=== PATIENT | female | born 2000 | race Caucasian/White ===

== ENCOUNTER 2021-06-23 21:17 | Emergency (ER) | payer MEDICAID, SELFPAY ==
[2021-06-23 21:18] VITALS: BP 142/95; PULSE 99; RESP 16; TEMP 37.3; O2SAT 100; BMI 45.6
[2021-06-23 21:48] LABS: Microscopic, Urine URINE MICROSCOPIC (MICROSCOPIC)
[2021-06-23 21:51] LABS: Appearance,Urine CLEAR (Clear); Bilirubin,Urine Negative (Negative); Blood, Urine 3+ (Negative); Color,Urine YELLOW (Yellow); Glucose,Urine (UA) Negative (Negative); Ketones,Urine Negative (Negative); Leukocyte Esterase,Urine Negative (Negative); Nitrate,Urine Negative (Negative); Protein,Urine 1+ (Negative); Specific Gravity, Urine >= 1.030 (1.005-1.030); Urobilinogen,Urine 0.2 EU/dl (0.2)
[2021-06-23 21:53] LABS: Basophils # 0.3 K/mm3 (0-0.2); Basophils % 2.5 % (0.1-2.0); Eosinophils # 0.2 K/mm3 (0.0-0.4); Eosinophils % 1.6 % (0.1-12.0); Hematocrit 36.4 % (37.0-47.0); Hemoglobin 12.2 g/dL (12.2-16.2); Lymphocytes # 2.3 K/mm3 (0.7-4.5); Lymphocytes % 22.5 % (10-50); Mean Corpuscular HGB Conc 33.5 g/dL (31.8-35.4); Mean Corpuscular Hemoglobin 26.6 pg (27.0-31.2); Mean Corpuscular Volume 79.3 fl (81-99); Mean Platelet Volume 7.5 fl (7.4-10.4); Monocytes # 0.6 K/mm3 (0.1-1.0); Monocytes % 5.8 % (1.7-9.3); Neutrophils % 67.6 % (37.0-80.0); Platelet Count 317 K/mm3 (142-424); Red Blood Count 4.59 M/mm3 (4.20-5.40); Red Cell Distribution Width 14.1 % (11.5-17.5); White Blood Count 10.4 K/mm3 (4.8-10.8)
[2021-06-23 21:54] LABS: Bacteria,Urine Trace /lpf; RBC,Urine TNTC #/hpf (0-3); Squamous Epithelial Cell,Urine Occasional #/hpf (0-5); Urine Pregnancy, HCG Qual. Negative (Negative); WBC,Urine Occasional #/hpf (0-3)
[2021-06-23 22:03] LABS: Alanine Aminotransferase 33 U/L (12-78); Albumin Level 4.1 g/dl (3.5-5.0); Albumin/Globulin Ratio 1.3 (1.1-1.8); Alkaline Phosphatase 101 U/L (38-126); Anion Gap 12.8 mEq/L (5-15); Aspartate Amino Transferase 24 U/L (14-36); Bilirubin,Total 0.3 mg/dl (0.2-1.3); Blood Urea Nitrogen 15 mg/dl (7-17); Calcium 9.5 mg/dl (8.4-10.2); Carbon Dioxide 28 mmol/L (22.0-30.0); Chloride 103 mmol/L (98-107); Creatinine Clearance Estimated 127 mL/min (50-200); Estimated Glomerular Filt Rate 105 ml/min (>60); GFR (African American) 127 ML/MIN (>60); Globulin 3.2 g/dL (1.3-3.2); Glucose 98 mg/dl (74-100); Potassium 3.8 mmoL/L (3.5-5.1); Sodium 140 mmol/L (136-145); Total Protein,Serum 7.3 g/dl (6.3-8.2)
--- NOTE | 2021-06-23 22:59 | HMH.EDUROGF ---
ED Disposition Clinical Impression: Dysfunctional uterine bleeding Disposition: Home, Self-Care Condition on Discharge: Good Instructions: DI for Vaginal Bleeding Additional Instructions: see banquet server on call for follow up Referrals: Valentino Jim [Primary Care Provider] - - Critical Care Critical Care Time: No Attestation: On 06/23/21, the high probability of a clinically significant, sudden or life threatening deterioration of the following system(s) required my full and direct attention, intervention and personal management. The time I documented below is in addition to time spent performing reported procedures but includes the following listed in this critical care notation. Medical Decision Making - Medical Records Medical records reviewed: Yes: I reviewed the patient's medical records. - Andrés Inquiry Pt receiving controlled substance: No Vital Signs: 06/23/21 21:18 06/23/21 23:05 Temperature 99.2 F Temperature Source Oral Pulse Rate [Left Radial] 99 H Pulse Rate [Orthostatic Lying Left] 99 H Pulse Rate [Orthostatic Sitting Left] 85 Pulse Rate [Orthostatic Standing Left] 100 H Respiratory Rate 16 Blood Pressure [Left Arm] 142/95 H Blood Pressure [Orthostatic Lying Left Arm] 117/66 Blood Pressure [Orthostatic Sitting Left Arm] 121/71 Blood Pressure [Orthostatic Standing Left Arm] 128/79 Blood Pressure Mean [Left Arm] 110 Blood Pressure Position [Left Arm] Sitting 02 Sat by Pulse Oximetry 100 Oxygen Delivery Method Room Air - Lab Data Lab results reviewed: Yes: I reviewed the patient's lab results. Lab Results 06/23/21 21:30: Urine Color Yellow, Urine Appearance Clear, Urine pH 6.0, Ur Specific [place] >= 1.030, Urine Protein 1+, Urine Glucose (UA) Negative, Urine Ketones Negative, Urine Blood 3+, Urine Nitrate Negative, Urine Bilirubin Negative, Urine Urobilinogen 0.2, Ur Leukocyte Esterase Negative, Urine RBC Tntc, Urine WBC Occasional, Ur Squamous Epith Cells Occasional, Urine Bacteria Trace 06/23/21 21:30: Urine HCG, Qual Negative 06/23/21 21:45: WBC 10.4, RBC 4.59, Hgb 12.2, Hct 36.4 L, MCV 79.3 L, MCH 26.6 L, MCHC 33.5, RDW 14.1, Plt Count 317, MPV 7.5, Neut % (Auto) 67.6, Lymph % (Auto) 22.5, Sterling % (Auto) 5.8, Eos % (Auto) 1.6, Baso % (Auto) 2.5 H, Neut # (Auto) 7.0, Lymph # (Auto) 2.3, Sterling # (Auto) 0.6, Eos # (Auto) 0.2, Baso # (Auto) 0.3 H 06/23/21 21:45: Sodium 140, Potassium 3.8, Chloride 103, Carbon Dioxide 28, Anion Gap 12.8, BUN 15, Creatinine 0.70, Estimated Creat Clear 127, Estimated GFR 105, Est GFR ( Amer) 127, Glucose 98, Calcium 9.5, Total Bilirubin 0.3, AST 24, ALT 33, Alkaline Phosphatase 101, Total Protein 7.3, Albumin 4.1, Globulin 3.2, Albumin/Globulin Ratio 1.3 Result diagrams: 06/23/21 21:45 06/23/21 21:45 Orders (Tests/Meds): ED MEDICATIONS Generic Name Dose Route Start Last Admin Trade Name Freq PRN Reason Stop Dose Admin Sodium Chloride 1,000 mls @ 999 mls/hr 06/23/21 21:45 06/23/21 21:53 Sod Chlor 0.9% 1000ml Bag IV 06/23/21 22:45 999 mls/hr .Q1H1M PHIL Administration Medical Decision Narrative: dub with stable labs and exam - will need banquet server on call Female Urogenital HPI - General Chief complaint: Vaginal Bleeding Stated complaint: on period for month,weakness Time Seen by Provider: 06/23/21 22:00 Mode of Arrival: Ambulatory Source of Information: Patient, Medical Record Limitations: No Limitations Description of Symptoms (Recalled from ER Triage Doc. by RN): PATIENT WITH VAGINAL BLEEDING X 1 MONTH. PT STATES SHE HAS APPT WITH OBGYN IN 1 MONTH BUT HAS RECENTLY BEEN EXPERIENCING WEAKNESS. PT REPORTS HEAVY BLEEDING WITH CLOTS - History of Present Illness HPI Narrative: vag bleeding x 1 month with no preg or syncope MD Complaint: vaginal bleeding Onset (ago): week(s) Severity: moderate Quality: cramping : No Associated symptoms: denies other symptoms - Related Data Home Medications Medication Instructions Re
[2021-06-23 23:05] VITALS: BP 117/66; BP 121/71; BP 128/79; PULSE 100; PULSE 85; PULSE 99
[2021-06-24 00:09] VITALS: BP 133/71; PULSE 87; RESP 16; TEMP 36.6; O2SAT 97
== END 2021-06-24 00:12 | disposition home or self-care (01) ==
PROVIDERS: Emergency Provider Emergency Medicine; PCP Family Medicine
DX: N93.8 Other specified abnormal uterine and vaginal bleeding (principal); R53.1 Weakness
CPT/HCPCS: 80053; 81001; 81025; 85025; 99283

== ENCOUNTER → 2021-06-30 09:58 | Outpatient (CLI) | payer MEDICAID, SELFPAY ==
[2021-06-30 10:42] LABS: Basophils # 0.1 K/mm3 (0-0.2); Eosinophils # 0.1 K/mm3 (0.0-0.4); Eosinophils % 1.5 % (0.1-12.0); Hemoglobin 12.4 g/dL (12.2-16.2); Lymphocytes # 1.8 K/mm3 (0.7-4.5); Lymphocytes % 20.8 % (10-50); Mean Corpuscular HGB Conc 32.8 g/dL (31.8-35.4); Mean Corpuscular Hemoglobin 26.6 pg (27.0-31.2); Mean Corpuscular Volume 81.1 fl (81-99); Mean Platelet Volume 7.4 fl (7.4-10.4); Monocytes # 0.5 K/mm3 (0.1-1.0); Monocytes % 6.3 % (1.7-9.3); Neutrophils % 70.3 % (37.0-80.0); Platelet Count 366 K/mm3 (142-424); Red Blood Count 4.68 M/mm3 (4.20-5.40); Red Cell Distribution Width 14.3 % (11.5-17.5); White Blood Count 8.5 K/mm3 (4.8-10.8)
[2021-06-30 12:15] LABS: Triiodothryronine (T3) Uptake 30 % (23.5-40.5)
[2021-06-30 12:16] LABS: Free Thyroxine Index 3.9 ug/dL (5.93-13.13)
[2021-06-30 12:29] LABS: Thyroid Stimulating Hormone 1.22 uIU/mL (0.465-4.68)
== END ==
PROVIDERS: PCP Family Medicine; Visit Provider Obstetrics & Gynecology
DX: N92.6 Irregular menstruation, unspecified (principal)
CPT/HCPCS: 36415; 84436; 84443; 84479; 85025

== ENCOUNTER → 2021-07-03 12:45 | Outpatient (CLI) | payer MEDICAID, SELFPAY ==
--- NOTE | 2021-07-03 12:49 | US_ITS ---
FINAL REPORT CLINICAL HISTORY: abnormal bleeding FINDINGS: Transvaginal sonographic images of the pelvis were obtained. The uterus measures 8.4 x 4.2 x 3.6 cm. The endometrium measures 13 mm, which is at the upper limits of normal. No uterine mass is identified. The right ovary measures 4.0 cm cm in length and left ovary measures 4.3 cm cm in length. Normal blood flow seen to the ovaries. There are small follicles in the periphery of the bilateral ovaries worrisome for polycystic ovarian syndrome. There is no evidence of free fluid. IMPRESSION: Findings worrisome for polycystic ovarian syndrome. Endometrium at the upper limits of normal. Reviewed, Interpreted and Dictated by Riley Lopez III, MD Transcribed by Adrian Andersen Authenticated by Riley Lopez III, MD on 07/03/2021 02:39:37 PM [facility]
== END ==
PROVIDERS: PCP Family Medicine; Visit Provider Obstetrics & Gynecology
DX: N93.8 Other specified abnormal uterine and vaginal bleeding (principal)
CPT/HCPCS: 76830

== ENCOUNTER 2022-11-06 01:31 | Emergency (ER) | payer OTHER, SELFPAY ==
[2022-11-06 01:41] VITALS: RESP 16; TEMP 36.8; O2SAT 100; BMI 45.6
[2022-11-06 02:01] VITALS: BP 137/74; PULSE 91; O2SAT 97
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
--- NOTE | 2022-11-06 02:40 | XR_ITS ---
PROCEDURE INFORMATION: Exam: XR Right Foot Exam date and time: 11/06/2022 2:57 AM Age: 22 years old Clinical indication: Pain; Foot; Right; Additional info: Puncture wound top R foot TECHNIQUE: Imaging protocol: Radiologic exam of the right foot. Views: 3 or more views. COMPARISON: No relevant prior studies available. FINDINGS: Bones/joints: Normal. Soft tissues: Normal. No foreign body or other abnormality noted. IMPRESSION: No acute findings.
[2022-11-06 05:24] VITALS: BP 135/79; PULSE 85; RESP 18; TEMP 36.7
== END 2022-11-06 05:31 | disposition home or self-care (01) ==
PROVIDERS: Emergency Provider Emergency Medicine; PCP Family Medicine
DX: S91.311A Laceration without foreign body, right foot, initial encounter (principal); W26.0XXA Contact with knife, initial encounter
CPT/HCPCS: 12001; 73630; 90715; 96372; 99283